=== PATIENT | female | born 1970 | race American Indian/Alaskan Native ===

== ENCOUNTER 2017-09-16 22:55 | Emergency (ER) | payer OTHER ==
[2017-09-16] MEDS ORDERED: NACL 0.9% 500 ML 500 ML IV ONE (23:13)
--- NOTE | 2017-09-16 23:55 | XRay Report ---
FINAL REPORT PROCEDURE: XR CHEST ROUTINE 2V TECHNIQUE: PA and lateral chest radiographs were obtained. CPT 21068 HISTORY: possible Sepsis COMPARISON: No prior studies are available for comparison. FINDINGS: Heart: Normal. Mediastinum/Vessels: Normal. Lungs/Pleural space: Normal. Bony thorax: No acute osseous abnormality. Other: IMPRESSION: Normal examination.
[2017-09-17] LABS: Basophils # (Auto) 0.1 K/mm3 (0.0-0.1); Basophils % (Auto) 0.7 % (0.0-1.8); Eosinophils # (Auto) 0.1 K/mm3 (0.0-0.4); Eosinophils % (Auto) 1.2 % (0.0-4.3); Hematocrit 39.1 % (30.3-42.9); Hemoglobin 12.4 gm/dl (10.1-14.3); Lymphocytes # (Auto) 3.3 K/mm3 (1.2-5.4); Lymphocytes % (Auto) 36.1 % (13.4-35.0); Mean Corpuscular HGB Conc 32 % (30-34); Mean Corpuscular Hemoglobin 28 pg (28-32); Mean Corpuscular Volume 89 fl (79-97); Monocytes # (Auto) 0.7 K/mm3 (0.0-0.8); Platelet Count 268 K/mm3 (140-440); Red Blood Count 4.38 M/mm3 (3.65-5.03); Red Cell Distribution Width 15.2 % (13.2-15.2)
[2017-09-17 00:11] VITALS: BP 142/82
--- NOTE | 2017-09-17 00:12 | Emergency Department Report ---
HPI - General Chief Complaint: Neuro Symptoms/Deficit Time Seen by Provider: 09/16/17 23:39 - HPI HPI: 46-year-old Afro[place] female presents to the emergency department from home with complaint of some tingling to the right hand and forearm, "going up the arm ", since about 9:30 this evening that woke her from sleep. She says that she accidentally hit the forearm on a car while she was trying to get her family member from school earlier today but she did not have these symptoms at that time. She denies any rash, swelling, skin color change. She says that it is not a numbness but it feels like "ants are crawling up my arm." She is right- hand dominant. She denies any chest pain, shortness of breath, headache, vision change, slurred speech or any other neurological deficits. She did not take anything for her symptoms prior to presentation. She has a past medical history of a pulmonary embolism and is on Xarleto and has been compliant with her medications. She has a PCP but is going to "switch to another one." ED Past Medical Hx - Past Medical History Previous Medical History?: Yes Additional medical history: PE, "and clot to R side of heart" - Surgical History Past Surgical History?: Yes Additional Surgical History: L Knee sx 08/04/2017 - Social History Smoking Status: Never Smoker Substance Use Type: None ED Review of Systems ROS: Stated complaint: RIGHT ARM NUMBNESS Other details as noted in HPI Comment: All other systems reviewed and negative Constitutional: denies: chills, fever Eyes: denies: eye pain, eye discharge, vision change ENT: denies: ear pain, throat pain Respiratory: denies: cough, shortness of breath, wheezing Cardiovascular: denies: chest pain, palpitations Gastrointestinal: denies: abdominal pain, nausea, diarrhea Genitourinary: denies: urgency, dysuria, discharge Musculoskeletal: denies: back pain, joint swelling Skin: denies: rash, lesions Neurological: paresthesias. denies: headache, numbness Physical Exam - Physical Exam Vital Signs: Vital Signs 09/16/17 23:00 Temperature 97.9 F Pulse Rate 85 Respiratory 18 Rate Blood Pressure 136/89 O2 Sat by Pulse 98 Oximetry Physical Exam: GENERAL: The patient is well-developed well-nourished. HENT: Normocephalic. Atraumatic. Patient has moist mucous membranes. EYES: Extraocular motions are intact. Pupils equal reactive to light bilaterally. NECK: Supple. Trachea is midline. CHEST/LUNGS: Clear to auscultation. There is no respiratory distress noted. HEART/CARDIOVASCULAR: Regular. There is no tachycardia. There is no murmur. ABDOMEN: Abdomen is soft, nontender. Patient has normal bowel sounds. There is no abdominal distention. SKIN: Skin is warm and dry. NEURO: The patient is awake, alert, and oriented. The patient is cooperative. The patient has no focal neurologic deficits. The patient has normal speech. No pronator drift. No dysmetria. MUSCULOSKELETAL: There is no tenderness or deformity. There is no limitation range of motion. There is no evidence of acute injury. Credit Counselor strength is 5 out of 5 bilaterally. Cap refill less than 2 seconds. Radial pulses +2 over 4 bilaterally. ED Course Vital Signs 09/16/17 23:00 Temperature 97.9 F Pulse Rate 85 Respiratory 18 Rate Blood Pressure 136/89 O2 Sat by Pulse 98 Oximetry ED Medical Decision Making - Lab Data Result diagrams: 09/16/17 23:45 09/16/17 23:45 - Radiology Data Radiology results: image reviewed interpreted by me: Chest x-ray does not show any acute process. There are no pleural effusions, obvious pneumonia and there is no pneumothorax. X-ray of the right forearm does not show any fracture, dislocation or any acute process. - Medical Decision Making Patient presents with the complaint of some pain or tingling going up the right arm. She also specifically points out that she hit her forearm right arm on something earlier in the day. On physical examination, the patient does not have any pronator drift, dysmetria, obvious motor deficits or weakness. She has strong radial pulses, cap refill less than 2 seconds, and appears neurovascularly intact. As the patient's complaints seem mostly isolated to the distal half of the right upper extremity, and there are no other neurological deficits, I did not feel that CT imaging of the head was necessary at this time. We checked a CBC to make sure that this was not symptomatic anemia but the hemoglobin was 12.4. I checked a metabolic panel to make sure that there are no electrolyte abnormalities or glucose abnormalities that could be causing what appears to be paresthesias. The labs from the metabolic panel were unremarkable. A TSH was obtained but also fell within the normal range. There does not appear to be any rash, lesions or skin color change. Her complaint does not appear to be dermatomal. The patient requested an x-ray be done of the forearm, and the images do not show any signs of any fracture, dislocation, foreign body or any other acute process and this was confirmed by the reading of the radiologist. She appears safe for discharge home at this time. She has been encouraged to follow up with her PCP and was told that if the paresthesias continue, she may also need to see a neurologist or have some advanced imaging done such as an MRI or nerve conduction study. She was given a referral for an orthopedist for further evaluation as well. She was encouraged to return to the emergency department immediately with any worsening or progression of her symptoms, any neurological deficits, or any acute distress. - Differential Diagnosis paresthesias, peripheral neuropathy, radiculopathy, hypothyroid, electrolyt Critical Care Time: No Critical care attestation.: If time is entered above; I have spent that time in minutes in the direct care of this critically ill patient, excluding procedure time. ED Disposition Clinical Impression: Paresthesia of right arm Disposition: DC-01 TO HOME OR SELFCARE Is pt being admited?: No Condition: Stable Instructions: Paresthesia (ED) Additional Instructions: Please follow-up with your primary care physician in the next few days. I have given you a referral for a local orthopedist, Dr. Lopez, to follow-up regarding your arm pain. Return to the emergency Department with any worsening of your symptoms or any acute distress. Referrals: EDGARD LOPEZ MD [Staff Physician] - 3-5 Days PCP, Your [Other] - [facility] Time of Disposition: 01:02
[2017-09-17 00:19] LABS: INR 1.33 (0.87-1.13); Partial Thromboplastin Time 38.3 Sec. (24.2-36.6)
[2017-09-17 00:21] LABS: Alanine Aminotransferase 13 units/L (7-56); Albumin 3.7 g/dL (3.9-5); BUN/Creatinine Ratio 19; Blood Urea Nitrogen 15 mg/dL (7-17); Calcium 9.4 mg/dL (8.4-10.2); Hemolysis Index 0
--- NOTE | 2017-09-17 00:45 | XRay Report ---
FINAL REPORT PROCEDURE: XR FOREARM RT TECHNIQUE: RIGHT forearm radiographs, AP and lateral views. CPT 62341 HISTORY: forearm pain COMPARISON: No prior studies are available for comparison. FINDINGS: Fracture (s) and/or Dislocation(s): None . Joint space(s): Normal . Soft tissues: Normal . Bone mineralization: Normal . Foreign bodies: None . IMPRESSION: Normal Examination
== END 2017-09-17 01:36 | disposition home or self-care (01) ==
LOC: ED 22:55
DX: M79.631 Pain in right forearm (principal); R20.2 Paresthesia of skin
CPT/HCPCS: 36415; 71046; 80053; 84443; 85025; 85610; 85730; 99283

== ENCOUNTER 2019-02-13 21:31 | Emergency (ER) | payer OTHER ==
[2019-02-13 21:41] VITALS: BP 129/84
--- NOTE | 2019-02-13 21:42 | Emergency Department Report ---
Blank Doc - Documentation Documentation: This is a 48-year-old female that present with left ankle pain and swelling af ter tattoo placement. This initial assessment/diagnostic orders/clinical plan/treatment(s) is/are subject to change based on patient's health status, clinical progression and re- assessment by fellow clinical providers in the ED. Further treatment and workup at subsequent clinical providers discretion. Patient/guardians urged not to elope from the ED as their condition may be serious if not clinically assessed and managed. Initial orders include: 1- Patient sent to [facility] for further evaluation and treatment
[2019-02-13] MEDS ORDERED: CLEOCIN IM ONE (23:42)
[2019-02-13] MEDS ORDERED: TORADOL IM ONE (23:42)
--- NOTE | 2019-02-13 23:53 | Emergency Department Report ---
ED General Adult HPI - General Chief complaint: Extremity Injury, Lower Stated complaint: LEFT LEG AND ANKLE SWOLLEN/PAIN Time Seen by Provider: 02/13/19 21:41 Source: patient Mode of arrival: Ambulatory Limitations: No Limitations - History of Present Illness Initial comments: This is a 48-year-old female presents ED complaining now left lateral lower leg pain redness and swelling for the past 3 days. Patient states that on she got a tattoo to her lower leg. Patient states that it did after that she started since redness and swelling to the area around the tattoo. Patient states she's been stressing some pain and redness since then. She denies fevers or chills S nausea or vomiting - Related Data Previous Rx's Medication Instructions Recorded Last Taken Type Clindamycin [Clindamycin CAP] 300 mg PO Q8H #20 cap 02/14/19 Unknown Rx Ibuprofen [Motrin] 800 mg PO Q8HR #20 tablet 02/14/19 Unknown Rx Sulfamethoxazole/Trimethoprim 1 each PO BID #20 tablet 02/14/19 Unknown Rx [Bactrim DS TAB] Allergies Allergy/AdvReac Type Severity Reaction Status Date / Time aspirin Allergy Anaphylaxis Verified 09/16/17 23:00 ED Review of Systems ROS: Stated complaint: LEFT LEG AND ANKLE SWOLLEN/PAIN Other details as noted in HPI ED Past Medical Hx - Past Medical History Previous Medical History?: Yes Additional medical history: PE, "and clot to R side of heart" - Surgical History Past Surgical History?: Yes Hx Appendectomy: Yes Additional Surgical History: L Knee sx 08/04/2017 - Social History Smoking Status: Never Smoker Substance Use Type: None - Medications Home Medications: Home Medications Medication Instructions Recorded Confirmed Last Taken Type Clindamycin [Clindamycin CAP] 300 mg PO Q8H #20 cap 02/14/19 Unknown Rx Ibuprofen [Motrin] 800 mg PO Q8HR #20 tablet 02/14/19 Unknown Rx Sulfamethoxazole/Trimethoprim 1 each PO BID #20 tablet 02/14/19 Unknown Rx [Bactrim DS TAB] ED Physical Exam - General Limitations: No Limitations General appearance: alert, in no apparent distress - Head Head exam: Present: atraumatic, normocephalic - Eye Eye exam: Present: normal appearance - ENT ENT exam: Present: mucous membranes moist - Neck Neck exam: Present: normal inspection - Respiratory Respiratory exam: Present: normal lung sounds bilaterally. Absent: respiratory distress - Cardiovascular Cardiovascular Exam: Present: regular rate, normal rhythm. Absent: systolic murmur, diastolic murmur, rubs, gallop - GI/Abdominal GI/Abdominal exam: Present: soft, normal bowel sounds - Extremities Exam Extremities exam: Present: normal inspection, full ROM, tenderness (to palpation of left lateral leg surrounding the tattoo), other (surrounding erythema around the tattoo localized to the left lateral lower leg). Absent: calf tenderness - Back Exam Back exam: Present: normal inspection - Neurological Exam Neurological exam: Present: alert, oriented X3 - Psychiatric Psychiatric exam: Present: normal affect, normal mood - Skin Skin exam: Present: warm, dry, intact, normal color. Absent: rash ED Course Vital Signs 02/13/19 02/13/19 21:38 21:58 Temperature 98.3 F 98.3 F Pulse Rate 90 Respiratory 18 Rate Blood Pressure 129/84 O2 Sat by Pulse 99 Oximetry ED Medical Decision Making - Medical Decision Making 40-year-old female presents with cellulitis of the lower leg. Patient received clindamycin in the ED as well as pain medication. Discussed with patient and she'll be going home on antibiotic therapy as well as pain medicine. Discuss to follow up with primary care physician in 2-4 days. Vital signs are normal. Patient is in no acute distress. Critical care attestation.: If time is entered above; I have spent that time in minutes in the direct care of this critically ill patient, excluding procedure time. ED Disposition Clinical Impression: Left leg cellulitis Disposition: - TO HOME OR SELFCARE Is pt being admited?: No Does the pt Need Aspirin: No Condition: Stable Instructions: Cellulitis (ED) Additional Instructions: Make sure to follow up with the primary care physician as discussed. Take all your medications as you've been prescribed. If you have any worsening symptoms or develop new symptoms please return to ED immediately. Prescriptions: Sulfamethoxazole/Trimethoprim [Bactrim DS TAB] 1 each PO BID #20 tablet Clindamycin [Clindamycin CAP] 300 mg PO Q8H #20 cap Ibuprofen [Motrin] 800 mg PO Q8HR #20 tablet Referrals: HUSSEIN HIGGINS MD [Primary Care Provider] - 3-5 Days Forms: Work/School Release Form(ED) Time of Disposition: 00:38
== END 2019-02-14 00:53 | disposition home or self-care (01) ==
LOC: ED 21:31
DX: L03.116 Cellulitis of left lower limb (principal); Z90.49 Acquired absence of other specified parts of digestive tract; Z79.899 Other long term (current) drug therapy; Z88.6 Allergy status to analgesic agent
CPT/HCPCS: 96372; 99282; J1885